=== PATIENT | female | born 1960 | race Caucasian/White ===

== ENCOUNTER → 2016-11-05 | Day surgery (SDC) | payer OTHER ==
[~2016-11-05] VITALS: Ht 167.6 cm; Wt 104.5 kg
[~2016-11-05] MED LIST: ACETAMINOPHEN 1000 MG/100 ML VIAL IV ONE; BETAMETHASONE SOD PHOS/ACETATE SUSP 30 MG/5 ML VIAL ONE; BUPIVACAINE HCL PF 0.5% 30 ML VIAL INFIL ONE; BUPIVACAINE HCL PF 0.5% 30 ML VIAL NERV BLOCK ONE; BUPIVACAINE HCL PF 0.5% 30 ML VIAL ONE; CELE40TA PO; CHOL5000 PO; DEXAMETHASONE SOD PHOS 4 MG/ML VIAL ONE; DEXT 5%-NACL 0.45% 1000 ML INJ 1,000 ML IV SCH; IBUP800T23 PO; KETOROLAC TROMETHAMINE 60 MG/2 ML (IM) VIAL IM ONE; LACTATED RINGER'S 1000 ML INJ 1,000 ML ONE; LEVO100T5 PO; LEVO88TA2 PO; LISI20TA PO; LOVA20TA PO; METF500T PO; MIDAZOLAM HCL 5 MG/ML VIAL (1 ML) ONE; MOBI15TA PO; NORC5TAB PO; ONDANSETRON HCL 4 MG/2 ML VIAL IV PUSH ONE; PHENYLEPH/NS 1000 MCG/10 ML SYR IV ONE; PRIL20CA9 PO; PROPOFOL 200 MG/20 ML AMP IV ONE; SODIUM CHLORIDE 0.9% FLUSH 5 ML FLUSH IVF PRN; SODIUM CHLORIDE 0.9% FLUSH 5 ML FLUSH IVF SCH; ZYRT10CA PO; ceFAZolin 2 GM PREMIX 50 ML ONE; ePHEDrine/NS 25 MG/5 ML SYR IV ONE
[2016-11-05 07:56] LABS: HEMATOCRIT 38.4 % (35.0-46.0); MEAN CELL VOLUME 86.2 FL (80.0-100.0); MEAN CORPUSCULAR HEMOGLOBIN 29.8 PG (27.0-34.0); MEAN CORPUSCULAR HGB CONC 34.5 % (32.0-36.0); PLATELET COUNT 235 TH/MM3 (150-450); RED BLOOD COUNT 4.46 MIL/MM3 (4.00-5.30); RED CELL DISTRIBUTION WIDTH 12.9 % (11.6-17.2); REVIEW FLAG FINAL; WHITE BLOOD COUNT 5.5 TH/MM3 (4.0-11.0)
--- NOTE | 2016-11-05 08:03 | HP.UPD ---
H&P Update Date: November 05, 2016 Note The Pre-Admit History and Physical Examination regarding the above named patient was reviewed (including, but not limited to, vital signs, medications, allergies, co-morbid conditions), and upon re-examination it is noted that: Indicated with "X" x - the patient's condition has not significantly changed since the last examination. [] - the patient's condition has changed since the last examination. Changes: Aure Bond MD November 05, 2016 08:03
[2016-11-05 08:06] VITALS: BP 118/85; PULSE 68; RESP 20; TEMP 99.3; O2SAT 96
[2016-11-05 08:28] VITALS: PULSE 64
--- NOTE | 2016-11-05 11:59 | HHI.PR ---
Immediate Post Op Note Procedure Date: November 05, 2016 Pre Op Diagnosis: (1) Osteoarthritis of hand, primary localized (2) Primary osteoarthritis of right hand Post Op Diagnosis: (1) Osteoarthritis of hand, primary localized (2) Primary osteoarthritis of right hand Surgeon: Aure Bond Computer Language Coder(s): None Procedure: Interposition arthroplasty of the left thumb CMC joint with tendon transfer. Injection of the right thumb CMC joint with 0.4 mL of Celestone and 2 mL of bupivacaine 0.5% plain. Anesthesia: General Drains: None Tourniquet time (min at mmHg) 66 minutes at 220 mmHg. Patient to: PACU Patient Condition: Good Date/Time of Procedure: SEE SURGICAL CARE RECORD Aure Bond MD November 05, 2016 11:59
[2016-11-05 12:00] VITALS: PULSE 79
[2016-11-05 13:30] VITALS: BP 100/67; PULSE 64; RESP 16; TEMP 98.2; O2SAT 94
--- NOTE | 2016-11-06 15:48 | EKG ---
Date Performed: 11/05/2016 Time Performed: 07:34:14 PTAGE: 55 years EKG: Sinus rhythm . Poor R wave progression - probable normal variant Low QRS voltages in precordial leads Borderline E CG NO PREVIOUS TRACING DOCTOR: Iram Carrillo Interpretating Date/Time 11/06/2016 15:46:08
--- NOTE | 2016-11-06 19:38 | MP ---
cc: WAGNER MARTIN M.D. DATE OF SURGERY 11/05/16 PREOPERATIVE DIAGNOSIS 1. 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 2. Degenerative joint disease of the left thumb CMC joint. POSTOPERATIVE DIAGNOSIS 1. 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 2. Degenerative joint disease of the left thumb CMC joint. PROCEDURE 1. Injection of 0.4 mL of Celestone into the right thumb CMC joint. 2. Interposition arthroplasty of the left thumb CMC joint tendon transfer ANESTHESIA General SURGEON Dr. Louise Martin INDICATIONS A 55-year-old female with degenerative joint disease of both thumbs. The decision was made to reconstruct the left one and inject the right one with a steroid. At the completion of the procedure, both had been achieved. The patient tolerated the procedure well. Tourniquet time was 66 minutes. PROCEDURE IN DETAIL The patient was seen preoperatively where the sites and side were identified and marked. She was then taken to the operating room, placed in a supine position. Her identity was checked against the arm band and the consent form, sites and side confirmed, time-out called prior to beginning the procedure. Attention was first turned to the right thumb CMC joint where the joint was infiltrated under sterile technique with 2 mL of bupivacaine 0.5% plain. This was then followed by 0.4 mL of Celestone. A Band-Aid was placed. Attention was then turned to the left upper extremity which was prepped with Hibiclens and draped in usual sterile fashion. The area to be incised was outlined with a marking pen as a transverse incision at the dorsal base of the left thumb CMC joint. In addition, a transverse incision was designed in the most distal volar portion of the flexor carpi radialis and wrist and 10 cm proximal to this. The arm was then exsanguinated and the tourniquet inflated to 220 mmHg. A #15 blade was used to make the incision over the thumb CMC joint down through the skin down to the subcutaneous tissue. Under loupe magnification using sharp and blunt dissection, superficial vessels and nerves were identified and retracted. The tendon sheaths were opened and retracted exposing the capsule which was then opened and entered. A 4-mm osteotome was used to carefully separate the ligamentous attachments of the trapezium which was then removed in piecemeal. A 4-mm hole was drilled obliquely through the base of the shaft of the left thumb metacarpal using sequentially larger drill bits. The whole area was then copiously irrigated with saline. A new 15 blade was then used to make the incision over the flexor carpi radialis distally and proximally as outlined above. Distally, the incision was made down through skin down to the subcutaneous tissue. Under loupe magnification, superficial vessels and nerves identified and retracted exposing the tendon sheath. It was then opened proximally and distally. Attention was then turned proximally where the incision was made approximately 10 cm proximal to the first one down through the skin down to the subcutaneous tissue. Under loupe magnification using sharp and blunt dissection, the tendon sheath was identified and opened. The tendon was isolated from the surrounding structures of underlying muscle and 50% on the ulnar side was incised with a new 15 blade. A tendon passer was then used to pass it from proximally to distally under loupe magnification. The tendon passer was used to strip it distally. It was then passed into the main wound using a right-angle clamp and the fibers was all the way to the insertion of the flexor carpi radialis at the base of the index metacarpal. A [place] passer was then used to pass it through the hole that was drilled in the metacarpal. The thumb was then pulled distally and adducted against the thumb and then sewn upon itself with the tendon under tension. The remainder of the tendon was then wrapped around the port coming from the index metacarpal to the thumb and secured with the same 3-0 Ethibond suture. The wounds were then copiously irrigated with saline. The thumb wound had the capsule repaired with the same suture material and excellent stability was noted. 4-0 Vicryl was used to close the dermal layer of the base of the thumb incision and all the wounds were closed with Dermabond. Once the glue had dried in several layers, Steri-Strips were applied and the tourniquet was released after 66 minutes of tourniquet time. Pressure was applied. After several minutes, there was no evidence of any swelling or oozing and a dressing was applied using fluffy gauze, hand wrap and a thumb spica splint. The patient was then taken from the operating room to the recovery room in satisfactory condition having tolerated the procedure well. Postoperative instructions include keeping the arm elevated, keeping it clean and dry and returning in several days for follow up. The patient was given a prescription for ibuprofen 800 mg every 8 hours as well as a prescription for [place] one or two every 6 hours as needed for pain. The dose is 5/325. The patient was given a supraclavicular block preoperatively for postoperative pain. MD EMILY Latif/ /12:03 PM /7:04 PM
== END | disposition home or self-care (01) ==
LOC: PHSDC 07:07
PROVIDERS: ATTEND Specialist
DX: M18.0 Bilateral primary osteoarthritis of first carpometacarpal joints (principal); I10 Essential (primary) hypertension; E78.5 Hyperlipidemia, unspecified
CPT/HCPCS: 01830; 20600; 25310; 25447; 36415; 64415; 85027; 93005; J0131; J0690; J0702; J1100; J2250; J7120; L3808; J1885; J2370; J2405

== ENCOUNTER → 2017-10-24 | Day surgery (SDC) | payer OTHER ==
[~2017-10-24] VITALS: Ht 167.6 cm; Wt 105.0 kg
[~2017-10-24] MED LIST changes: +*MEPERIDINE 25 MG INJ VIAL PERIprocedural Use ONLY ONE; +*ONDANSETRON 4 MG VIAL PERIprocedural Use ONLY ONE; -ACETAMINOPHEN 1000 MG/100 ML VIAL IV ONE; +ACETAMINOPHEN/HYDROcodone 325 MG/5 MG TAB ONE; +ALPR0.5T3 PO; -BETAMETHASONE SOD PHOS/ACETATE SUSP 30 MG/5 ML VIAL ONE; -BUPIVACAINE HCL PF 0.5% 30 ML VIAL INFIL ONE; -BUPIVACAINE HCL PF 0.5% 30 ML VIAL NERV BLOCK ONE; -BUPIVACAINE HCL PF 0.5% 30 ML VIAL ONE; +BUPIVACAINE/EPINEPHRINE 0.5% PF 30 ML VIAL ONE; +CELE200C PO; +CETI-1 PO; +CHLORHEXIDINE GLUCONATE 2 % 1 PACK (2 CLOTHS) TOPICAL PRN; +CITA40TA4 PO; -DEXAMETHASONE SOD PHOS 4 MG/ML VIAL ONE; -DEXT 5%-NACL 0.45% 1000 ML INJ 1,000 ML IV SCH; +FAMOTIDINE 20 MG/2 ML VIAL ONE; +HYDROmorphone HCL PF 0.5 MG/0.5 ML SYRINGE ONE; -IBUP800T23 PO; +INSULIN HUMAN REGULAR 1,000 UNITS/10 ML VIAL SQ PRN; -KETOROLAC TROMETHAMINE 60 MG/2 ML (IM) VIAL IM ONE; -LACTATED RINGER'S 1000 ML INJ 1,000 ML ONE; +LACTATED RINGER'S 1000 ML IV PRN; -LEVO100T5 PO; +LIDOCAINE 1%/EPINEPHrine 1:100,000 SOLN 20 ML VIAL ONE; +METOPROLOL TARTRATE 25 MG TAB PO PRN; +MIDAZOLAM HCL 2 MG/2 ML VIAL ONE; -MIDAZOLAM HCL 5 MG/ML VIAL (1 ML) ONE; +MORPHINE SULFATE 2 MG/ML SYRINGE ONE; +MORPHINE SULFATE 4 MG/ML INJ ONE; -NORC5TAB PO; -ONDANSETRON HCL 4 MG/2 ML VIAL IV PUSH ONE; -PHENYLEPH/NS 1000 MCG/10 ML SYR IV ONE; +POVIDONE IODINE 5% (ANTISEPSIS KIT) 4 APPLICATIONS EACH NARE PRN; -PRIL20CA9 PO; +PRIL20TA2 PO; -PROPOFOL 200 MG/20 ML AMP IV ONE; +SODIUM CHLORID 0.9% 500 ML IV PRN; -SODIUM CHLORIDE 0.9% FLUSH 5 ML FLUSH IVF PRN; -SODIUM CHLORIDE 0.9% FLUSH 5 ML FLUSH IVF SCH; +SODIUM CHLORIDE 0.9% INJ 100 ML ONE; -ZYRT10CA PO; -ceFAZolin 2 GM PREMIX 50 ML ONE; +ceFAZolin INJ 1,000 MG VIAL ONE; -ePHEDrine/NS 25 MG/5 ML SYR IV ONE
[2017-10-24 12:15] VITALS: BP 124/81; PULSE 90; RESP 16; TEMP 97.9; O2SAT 97
--- NOTE | 2017-10-25 16:08 | PD.OP ---
Operative Report Date of Surgery: October 24, 2017 Preoperative Diagnosis: (1) Osteoarthrosis of hand Postoperative Diagnosis: (1) Osteoarthrosis of hand Procedure: Right trapeziectomy and hematoma distraction arthroplasty (17620) Anesthesia: General Surgeon: Los Hernandez Security Tech(s): . Operation and Findings: 56-year-old female who presented to clinic status post left LRTI now with signs and symptoms consistent with right first CMC arthritis requesting trapeziectomy. Risks benefits and alternative treatments discussed all questions answered and the patient expressed understanding. Patient elected to assume the risks of right trapeziectomy and hematoma distraction arthroplasty. Informed consent obtained. Surgical site was marked in the preoperative holding bay. Antibiotics were given on-call to the operating room. The patient was taken to the operating room and all pressure points were padded. A surgical timeout was performed. After the smooth induction of general anesthesia the surgical site was instilled with 20 mls of quarter percent Marcaine with epinephrine. The surgical site was prepped and draped in the usual sterile fashion. The upper extremity was exsanguinated using an Esmarch bandage. An appropriately padded upper extremity tourniquet was inflated to 250 mmHg. An incision over the trapezium. Blunt dissection was carried down to the extensor apparatus. A knife was used to sharply incise the interval between the extensor pollicis brevis and longus, leaving peritenon intact, down to bone. The periosteal elevator was used to raise flaps radially and ulnarly along the dorsal proximal phalanx of the thumb. Dissection was then carried proximally until the trapezium was encountered. After adequate exposure was obtained in a similar fashion, a 2.5 mm drill was used to make several holes in the trapezium to allow for easier excision. The trapezium was then excised in a piecemeal fashion using a rongeur. Care was taken to avoid injury to the flexor carpi radialis, which was kept intact. Following trapezium excision, the mini C-arm was brought in, confirming complete excision. Following this, the thumb was placed into a position of opposition and slight distraction, and two 0.045 K wires were placed from radial and proximal on the first metacarpal to the second metacarpal base. Mini C-arm again was used to confirm adequate position. Following this the extensor apparatus was repaired using running 3-0 PDS. The skin was closed closed in multiple layers using a 3-0 Monocryl in a deep dermal interrupted fashion followed by 4-0 Monocryl running subcuticular. The K wires were cut, capped with Jurgan balls, and dressed with Xeroform gauze with bacitracin ointment. The incision was dressed with Steri-Strips and 4 x 4 gauze. Following this an appropriately padded thumb spica splint was fashioned. The tourniquet was let down at 121 minutes. All digits pinked up nicely. All needle sponge and instrument counts were correct 2. Patient arrived stable and doing well to the PACU. Los Hernandez MD October 25, 2017 16:08
== END | disposition home or self-care (01) ==
LOC: PHSDC 06:07
PROVIDERS: ATTEND Student in an Organized Health Care Education/Training Program
DX: M19.041 Primary osteoarthritis, right hand (principal); I10 Essential (primary) hypertension
CPT/HCPCS: 01830; 25447; 76000; 88305; 88311; J0690; J1170; J2175; J2250; J2270; J2405; J3010; J7120